=== PATIENT | female | born 2000 | race Caucasian/White ===

== ENCOUNTER 2020-12-14 00:04 | Emergency (ER) | payer MEDICAID ==
[2020-12-14 00:13] VITALS: BP 142/78
--- NOTE | 2020-12-14 00:38 | ER Document Report ---
ED General - General Chief Complaint: Skin Problem Stated Complaint: LEFT FACIAL SWELLING, HEARING CONCERNS Primary Care Provider: OLIVA GOETZ MD [Primary Care Provider] - Follow up as needed - HPI Notes: Chief Complaint: Left facial pain Historian: History obtained from patient HPI: This is a 3-year-old female presents complaining of left preauricular pain x2 days. Says it now radiates down the left submandibular area. She does report some fevers to 101 none at this time. She does have some pain range of motion of jaw but can fully range it. Did go to an urgent care yesterday looked at her ears and said they were normal did a negative strep test and discharge her. She has been taking Motrin without relief. No known Covid contacts. No history of parotitis. Denies dental pain or infections. No other associated symptoms like cough, sore throat, headache, trouble swallowing, chest pain, shortness of breath, neck swelling. No history of TMJ. ROS: Constitutional: Positive fevers. HEENT: Left facial pain CV: no chest pain or palpitations. Resp: no cough or SOB. GI: no abdominal pain, or n/v/d. : no dysuria, hematuria, or incont. MSK: no back pain, no joint swelling/redness. Skin: no rashes or itching. Neuro: no seizures, weakness, numbness, or confusion. Hematological: no ecchymosis or easy bleeding. Endocrine: no polyuria/polydipsia, no heat/cold intolerance. Psych: no SI/HI, AH/VH or memory loss. PMHx: Reviewed and agree as charted by RN. PSHx: Reviewed and agree as charted by RN. SOCHx: Reviewed and agree as charted by RN. FHX: No significant familial comorbid conditions directly related to patient complaint Current Medications: Reviewed and agree with the patient medications as charted by the RN. Allergies: Reviewed and agree with the listed allergies as charted by the RN Physical Exam: Vitals: Reviewed in chart as documented by RN. General: Alert and in NAD. Head: Normocephalic; atraumatic Eyes: PERRLA, Conjunctivae clear sclerae non-icteric bilat ENT: no soft palate swelling or uvular deviation face-left preauricular tenderness very mild swelling but no erythema. About 1 cm in size. Mouthno sublingual or submental edema no salivary stones sublingual area. No trismus. Tolerating oral secretions well. Neck: trachea midline, no unilateral swelling/tenderness. Small left submandibular lymphadenopathy mildly tender. CV: RRR, no M/R/G; symmetric distal pulses Resp: respirations even and unlabored, CTA bilat. GI: abd soft and nondistended. NTTP. normal BS. no masses/HSM. no CVAT bilat MSK: FROM of all extremities. No midline CTL spine tenderness/deformity Skin: warm, moist, good turgor. no rash/lesions Neuro: Alert and oriented X 4. following CN 2-12 intact. no unilateral weakness/numbness Psych: No SI/HI or AH/VH. Medical Decision-Making: Differential includes otitis media, otitis externa, viral syndrome, adenitis, parotitis, sialoadenitis, dental infection, TMJ, abscess, cellulitis, etc. Planis most likely pre-auricular lymphadenopathy versus parotitis vs tmj. Most likely TMJ due to submandibular lymph node as well unilateral symptoms and reports of fevers. Parotitis also slightly less likely because there is extremely minimal swelling and area of tenderness does not seem to encompass expected size of the parotid gland. Leaning toward lymphadenopathy/adenitis. Discussed management with patient. Would we decided on empiric treatment with antibiotic as well as hard candies to cover her for possible adenitis as well as salivary gland coverage. She may continue Tylenol Motrin. Return factors discussed. - Related Data Allergies/Adverse Reactions: No Known Allergies Allergy (Verified 12/14/20 00:29) Home Medications: kiara Past Medical History - Social History Smoking Status: Never Smoker Family History: Reviewed & Not Pertinent Physical Exam - Vital signs Vitals: Temp Pulse BP Pulse Ox 99.1 F 112 H 142/78 H 99 12/14/20 00:10 12/14/20 00:10 12/14/20 00:10 12/14/20 00:10 Course - Vital Signs Vital signs: Temp Pulse Resp BP Pulse Ox 99.1 F 112 H 142/78 H 99 12/14/20 00:10 12/14/20 00:10 12/14/20 00:10 12/14/20 00:10 - Laboratory Results Critical Laboratory Results Reviewed: No Critical Results - Radiology Results Critical Radiology Results Reviewed: No Critical Results Discharge - Discharge Clinical Impression: Left facial pain Condition: Stable Disposition: HOME, SELF-CARE Instructions: Acute Parotid Gland Swelling ([facility]), Lymphadenopathy ([facility]) Additional Instructions: Suck on hard candies in case your symptoms are caused by a salivary gland stone. Take medication as prescribed. Continue Motrin and Tylenol. Follow all printed instructions. Take medications as prescribed. Follow up with your doctor in 2-3 days for re-check. Return to the ER if your condition worsens. Prescriptions: Amoxicillin/Potassium Clav [Augmentin 875-125 Tablet] 1 tab PO Q12 #20 tablet Referrals: OLIVA GOETZ MD [Primary Care Provider] - Follow up as needed
== END 2020-12-14 00:45 | disposition home or self-care (01) ==
LOC: ER 00:04
DX: R51.9 Headache, unspecified (principal); R22.0 Localized swelling, mass and lump, head; R50.9 Fever, unspecified
CPT/HCPCS: 99283